=== PATIENT | female | born 1960 | race Caucasian/White ===

== ENCOUNTER 2018-06-16 15:08 | Emergency (ER) | payer SELFPAY ==
[2018-06-16 15:59] VITALS: PULSE 80; TEMP 98.8; BMI 25.4
[2018-06-16] MEDS ORDERED: SODIUM CHLORIDE FOR INHALATION 3 ML VIAL.NEB IH ONE (16:26)
[2018-06-16] MEDS ORDERED: HYDROCHLOROTHIAZIDE 25 MG TABLET (FP) PO ONE (16:33)
--- NOTE | 2018-06-16 16:43 | PDOC ---
History of Present Illness - History of Present Illness Initial Comments: 06/16/18 16:44 This is a 58 year old female with a significant past medical history of GERD, and HTN (Noncompliant with meds), who presents to the emergency department complaining of nasal congestion and cough for 3 days. Patient notes progressively worsening episodes of non-productive coughing. Patient states coughing is worse at night and sometimes makes her nauseous. She states her nose is dry and congested, causing her to breathe out of her mouth. Pt denies CP /SOB but reports soreness in her ribs due to coughing. Patient notes she experienced similar symptoms this summer, and saw her PCP and diagnosed it as bronchitis. Denies fever and chills. Denies leg swelling. Pt notes that she has h/o HTN but has been noncompliant with her meds due to being busy working 2 jobs. Allergies: Codeine Social hx: 2 glasses wine a week. Denies tobacco use. PCP: Dr. Esquivel <Cyril Benz - Last Filed: 06/16/18 17:06> <Wendie Eastman - Last Filed: 06/16/18 17:23> - General Chief Complaint: Respiratory Stated Complaint: BRONCHITIS Time Seen by Provider: 06/16/18 15:09 Past History - Past Medical History Anemia: No Asthma: No Cancer: No Cardiac Disorders: No CVA: No COPD: No CHF: No Dementia: No Diabetes: No GI Disorders: No Disorders: No HTN: No Hypercholesterolemia: No Liver Disease: No Seizures: No Thyroid Disease: No - Surgical History Abdominal Surgery: Yes (Abdominoplasty) Appendectomy: No Cardiac Surgery: No Cholecystectomy: No Lung Surgery: No Neurologic Surgery: No Orthopedic Surgery: No - Immunization History Immunization Up to Date: No - Suicide/Smoking/Psychosocial Hx Smoking Status: No Smoking History: Never smoked Have you smoked in the past 12 months: No Number of Cigarettes Smoked Daily: 0 Cigars Per Day: 0 Hx Alcohol Use: Yes Drug/Substance Use Hx: No Substance Use Type: None Hx Substance Use Treatment: No <Cyril Benz - Last Filed: 06/16/18 17:06> <Wendie Eastman - Last Filed: 06/16/18 17:23> - Past Medical History Allergies/Adverse Reactions: Allergies Allergy/AdvReac Type Severity Reaction Status Date / Time codeine [Codeine] Allergy Nausea Verified 06/16/18 15:55 Home Medications: Ambulatory Orders No Home Medications 0 dose .ROUTE UTDICT 01/10/13 Azithromycin 250 mg PO DAILY #4 tablet 06/16/18 Hydrochlorothiazide [Hctz -] 25 mg PO DAILY #30 tablet 06/16/18 Review of Systems - Review of Systems Comments:: 06/16/18 16:45 "GENERAL/CONSTITUTIONAL: +Chills No fever.. No weakness. HEAD, EYES, EARS, NOSE AND THROAT: +Nasal congestion. No change in vision. No ear pain or discharge. No sore throat. CARDIOVASCULAR: No CP/SOB. No loss of consciousness RESPIRATORY: +cough. No wheezing, or hemoptysis. GASTROINTESTINAL: No vomiting, diarrhea or constipation. GENITOURINARY: No dysuria, frequency, or change in urination. MUSCULOSKELETAL: No joint or muscle swelling or pain. SKIN: No rash NEUROLOGIC: No vertigo, no change in strength/sensation. ENDOCRINE: No increased thirst. No abnormal weight change. HEMATOLOGIC/LYMPHATIC: No anemia, easy bleeding, or history of blood clots. ALLERGIC/IMMUNOLOGIC: No hives or skin allergy. <Ou,Cyril - Last Filed: 06/16/18 17:06> *Physical Exam - Vital Signs Last Vital Signs Temp Pulse Resp BP Pulse Ox 98.8 F 80 15 190/110 H 98 06/16/18 15:08 06/16/18 15:08 06/16/18 15:08 06/16/18 15:08 06/16/18 15:08 - Physical Exam Comments: 06/16/18 16:46 GENERAL: Awake, alert, and fully oriented, in no acute distress. HEAD: No signs of trauma EYES: PERRLA, EOMI, sclera anicteric, conjunctiva clear ENT: Auricles normal inspection, hearing grossly normal, nares patent, oropharynx clear without exudates. Moist mucosa NECK: Nontender, no stepoffs, Normal ROM, supple, no lymphadenopathy, JVD, or masses LUNGS: +Slight rales at the right lung base. No wheezes, and no crackles HEART: Regular rate and rhythm, normal S1 and S2, no murmurs, rubs or gallops ABDOMEN: Soft, nontender, normoactive bowel sounds. No guarding, no rebound. No masses EXTREMITIES: Normal range of motion, no edema. No clubbing or cyanosis. No cords, erythema, or tenderness NEUROLOGICAL: Cranial nerves II through XII intact. 5/5 strength and sensation in all extremities, Normal speech, normal gait, normal cerebellar function SKIN: Warm, Dry, normal turgor, no rashes or lesions noted. <Ou,Cyril - Last Filed: 06/16/18 17:06> - Vital Signs Last Vital Signs Temp Pulse Resp BP Pulse Ox 98.8 F 80 15 160/104 H 98 06/16/18 15:08 06/16/18 15:08 06/16/18 15:08 06/16/18 17:12 06/16/18 15:08 <Wendie Eastman - Last Filed: 06/16/18 17:23> ED Treatment Course - RADIOLOGY Radiology Studies Ordered: Category Date Time Status CHEST PA & LAT [RAD] Stat Radiology 06/16/18 16:17 Ordered <Ou,Cyril - Last Filed: 06/16/18 17:06> - Medications Given in the ED: ED Medications Discontinued Medications Generic Name Dose Route Start Last Admin Trade Name Freq PRN Reason Stop Dose Admin Hydrochlorothiazide 25 mg 06/16/18 16:33 06/16/18 16:50 Hctz - PO 06/16/18 16:34 25 mg ONCE ONE Administration Sodium Chloride 3 ml 06/16/18 16:26 06/16/18 16:53 Normal Saline For Inhalation - IH 06/16/18 16:27 3 ml ONCE ONE Administration <Wendie Eastman - Last Filed: 06/16/18 17:23> Medical Decision Making - Medical Decision Making 06/16/18 16:36 58 F with 3 days of cough and myalgias. Likely viral URI. Will r/o PNA with CXR. Pt also noted to have elevated BP in ED, likely 2/2 med noncompliance. Pt with no s/s end-organ damage. Denies CP/SOB/headache. - CXR - Home dose of HCTZ 06/16/18 16:53 CXR clear on my read. However, given rales on exam, will tx with Z-pack. Pt is well appearing, with normal vitals. Clinically stable for DC at this time. I discussed the physical exam findings, ancillary test results and final diagnoses with the patient. I answered all of the patient's questions. The patient was satisfied with the care received and felt comfortable with the discharge plan and treatment plan. The patient agrees to follow up with the primary care physician within 24-72 hours. <Cyril Benz - Last Filed: 06/16/18 17:06> *DC/Admit/Observation/Transfer - Attestations Physician Attestion: 06/16/18 16:53 I, Dr. Cyril Benz MD, attest that this document has been prepared under my direction and personally reviewed by me in its entirety. I further attest, that it accurately reflects all work, treatment, procedures and medical decision -making performed by me. <Cyril Benz - Last Filed: 06/16/18 17:06> - Attestations Scribe Attestion: 06/16/18 17:23 Documentation prepared by THIERRY Kumar, acting as medical transport specialist for Cyril Benz MD. <Wendie Eastman - Last Filed: 06/16/18 17:23> Diagnosis at time of Disposition: Acute viral syndrome - Discharge Dispostion Disposition: HOME Condition at time of disposition: Good - Prescriptions Prescriptions: Azithromycin 250 mg PO DAILY #4 tablet Hydrochlorothiazide [Hctz -] 25 mg PO DAILY #30 tablet - Referrals Referrals: Serafin Esquivel MD [Primary Care Provider] - - Patient Instructions Printed Discharge Instructions: DI for Acute Bronchitis Additional Instructions: Your cough is likely due to bronchitis. Take the antibiotics as prescribed. Take your blood pressure medication as prescribed. Your blood pressure was elevated today. Uncontrolled blood pressure can eventually lead to kidney disease, heart disease, other serious illness, disability, or even . If you experience chest pain, shortness of breath, or any other concerning symptoms, return to the ER immediately. [place] tos es probable debido a la bronquitis. [place] los antibiticos segn lo prescrito. [place] gonzales medicamento para la presin arterial segn lo prescrito. Tu presin arterial se elev hoy. La presin arterial no controlada puede conducir eventualmente a enfermedad renal, enfermedad cardaca, otra enfermedad grave, discapacidad o incluso la muerte. Si experimenta dolor en el pecho, dificultad para respirar o cualquier otro sntoma relacionado, regrese a la maurice de emergencias inmediatamente. Print Language: GHANAIAN - Post Discharge Activity Forms/Work/School Notes: Back to Work
[2018-06-16] MEDS ORDERED: HYDROCHLOROTHIAZIDE 25 MG TABLET (FP) ONE (16:49)
[2018-06-16] MEDS ORDERED: AZITHROMYCIN 250 MG TABLET PO ONE (17:05)
[2018-06-16 17:12] VITALS: BP 160/104
== END 2018-06-16 17:18 | disposition home or self-care (01) ==
LOC: FER 15:08
PROC: 3E0F7GC Introduction of Other Therapeutic Substance into Respiratory Tract, Via Natural or Artificial Opening (ICD-10-PCS; principal; 2018-06-16)
DX: B34.9 Viral infection, unspecified (principal)
CPT/HCPCS: 71046-TC-FY; 99281-25

== ENCOUNTER 2018-10-24 07:34 | Emergency (ER) | payer OTHER ==
[2018-10-24 07:39] VITALS: BMI 25.4
--- NOTE | 2018-10-24 07:54 | PDOC ---
History of Present Illness - General Chief Complaint: Respiratory Stated Complaint: COUGH,EPIAGSTRIC PAIN,HEADACHE AND FEVER Time Seen by Provider: 10/24/18 07:48 History Source: Patient (Patient walked in complaining of chills, fever, muscle aches, cough. 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 No flu vaccine) Exam Limitations: No Limitations - History of Present Illness Timing/Duration: 24 hours Severity: mild, moderate Associated Symptoms: reports: cough, fever/chills, malaise Past History - Travel Traveled outside of the country in the last 30 days: No Close contact w/someone who was outside of country & ill: No - Past Medical History Allergies/Adverse Reactions: Allergies Allergy/AdvReac Type Severity Reaction Status Date / Time codeine [Codeine] Allergy Nausea Verified 10/24/18 07:35 Home Medications: Ambulatory Orders Hydrochlorothiazide [Hctz -] 25 mg PO DAILY #30 tablet 06/16/18 Oseltamivir Phosphate [Tamiflu -] 75 mg PO BID #10 capsule 10/24/18 Anemia: No Asthma: No Cancer: No Cardiac Disorders: No CVA: No COPD: No CHF: No Dementia: No Diabetes: No GI Disorders: No Disorders: No HTN: Yes Hypercholesterolemia: No Liver Disease: No Seizures: No Thyroid Disease: No - Surgical History Abdominal Surgery: Yes (Abdominoplasty) Appendectomy: No Cardiac Surgery: No Cholecystectomy: No Lung Surgery: No Neurologic Surgery: No Orthopedic Surgery: No - Immunization History Immunization Up to Date: No - Suicide/Smoking/Psychosocial Hx Smoking Status: No Smoking History: Never smoked Have you smoked in the past 12 months: No Number of Cigarettes Smoked Daily: 0 Cigars Per Day: 0 Hx Alcohol Use: Yes (socially) Drug/Substance Use Hx: No Substance Use Type: None Hx Substance Use Treatment: No Review of Systems - Review of Systems Able to Perform ROS?: Yes Is the patient limited Malay proficient: Yes Constitutional: Yes: Symptoms Reported, Fever, Malaise HEENTM: Yes: See HPI Respiratory: Yes: Cough. No: Stridor, Wheezing Cardiac (ROS): No: Symptoms Reported, See HPI, Chest Pain, Edema, Irregular Heart Rate, Lightheadedness, Palpitations, Syncope, Chest Tightness, Other ABD/GI: No: Symptoms Reported, See HPI, Abdominal Distended, Abd. Pain w/ defecation, Blood Streaked Bowels, Constipated, Diarrhea, Difficulty Swallowing , Nausea, Poor Appetite, Poor Fluid Intake, Rectal Bleeding, Vomiting, Indigestion, Abdominal cramping, Tarry Stools, Other : No: Symptoms Reported, See HPI, Burning, Dysuria, Discharge, Frequency, Flank Pain, Hematuria, Incontinence, Pain, Urgency, Testicular Mass, Testicular Swelling, Lesions, Testicular Pain, Other *Physical Exam - Vital Signs Last Vital Signs Temp Pulse Resp BP Pulse Ox 102.3 F H 109 H 18 147/106 H 95 10/24/18 07:35 10/24/18 07:35 10/24/18 07:35 10/24/18 07:35 10/24/18 07:35 - Physical Exam General Appearance: Yes: Nourished, Appropriately Dressed, Mild Distress HEENT: positive: JEFF, Pharyngeal Erythema Neck: positive: Supple, Lymphadenopathy (R) Respiratory/Chest: positive: Lungs Clear, Normal Breath Sounds Cardiovascular: positive: Regular Rhythm, Regular Rate, S1, S2 Medical Decision Making - Medical Decision Making Impression: URI viral versus strep B 10/24/18 08:35 *DC/Admit/Observation/Transfer Diagnosis at time of Disposition: Acute viral syndrome - Discharge Dispostion Disposition: HOME Condition at time of disposition: Stable Decision to Admit order: No - Prescriptions Prescriptions: Oseltamivir Phosphate [Tamiflu -] 75 mg PO BID #10 capsule - Referrals - Patient Instructions Printed Discharge Instructions: DI for Viral Syndrome - Post Discharge Activity Forms/Work/School Notes: Back to Work
[2018-10-24] MEDS ORDERED: ACETAMINOPHEN 325 MG TABLET (FP) ONE (08:27)
[2018-10-24] MEDS ORDERED: ACETAMINOPHEN 325 MG TABLET (FP) PO ONE (08:28)
[2018-10-24 08:53] VITALS: BP 139/92; PULSE 99; TEMP 101.8
== END 2018-10-24 08:53 | disposition home or self-care (01) ==
LOC: FER 07:34
DX: B34.9 Viral infection, unspecified (principal); I10 Essential (primary) hypertension
CPT/HCPCS: 87070; 87880; 99282-25

== ENCOUNTER 2018-11-15 14:34 | Emergency (ER) | payer OTHER ==
[2018-11-15 14:55] VITALS: BP 158/105; PULSE 88; TEMP 98; BMI 26.4
--- NOTE | 2018-11-15 15:06 | PDOC ---
History of Present Illness - General Chief Complaint: Ear Problem Stated Complaint: BOTH EAR PAIN Time Seen by Provider: 11/15/18 15:05 History Source: Patient Exam Limitations: No Limitations Past History - Travel Traveled outside of the country in the last 30 days: No Close contact w/someone who was outside of country & ill: No - Past Medical History Allergies/Adverse Reactions: Allergies Allergy/AdvReac Type Severity Reaction Status Date / Time codeine [Codeine] Allergy Nausea Verified 11/15/18 14:36 Home Medications: Ambulatory Orders Hydrochlorothiazide [Hctz -] 25 mg PO DAILY #30 tablet 06/16/18 Amoxicillin - [Amoxicillin 875mg Tablet -] 875 mg PO BID #14 tab 11/15/18 Cetirizine HCl [Zyrtec -] 10 mg PO DAILY PRN #30 tablet 11/15/18 Fluticasone Prop 0.05% Nasal [Flonase -] 1 - 2 spray NS DAILY PRN #1 spray.pump 11/15/18 Anemia: No Asthma: No Cancer: No Cardiac Disorders: No CVA: No COPD: No CHF: No Dementia: No Diabetes: No GI Disorders: No Disorders: No HTN: Yes Hypercholesterolemia: No Liver Disease: No Seizures: No Thyroid Disease: No - Surgical History Abdominal Surgery: Yes (Abdominoplasty) Appendectomy: No Cardiac Surgery: No Cholecystectomy: No Lung Surgery: No Neurologic Surgery: No Orthopedic Surgery: No - Immunization History Immunization Up to Date: No - Suicide/Smoking/Psychosocial Hx Smoking Status: No Smoking History: Never smoked Have you smoked in the past 12 months: No Number of Cigarettes Smoked Daily: 0 Cigars Per Day: 0 Information on smoking cessation initiated: No Hx Alcohol Use: Yes (2 X WEEK) Drug/Substance Use Hx: No Substance Use Type: None Hx Substance Use Treatment: No Review of Systems - Review of Systems Able to Perform ROS?: Yes Is the patient limited Lebanese proficient: No *Physical Exam - Vital Signs Last Vital Signs Temp Pulse Resp BP Pulse Ox 98 F 88 20 158/105 H 98 11/15/18 14:36 11/15/18 14:36 11/15/18 14:36 11/15/18 14:36 11/15/18 14:36 Medical Decision Making - Medical Decision Making Pt was seen at bedside, also will be seen by attending Dr. D'Ambrosia. Pt presenting with Considering [vs vs] Pt can be discharged to home with follow-up. Pt advised to follow-up with PCP in 1-2 days and has been referred to [referrals]. Strict return precautions provided with pt understanding. 11/15/18 15:27 *DC/Admit/Observation/Transfer Diagnosis at time of Disposition: Nasal congestion Otitis media Qualifiers: Otitis media type: unspecified Chronicity: acute Qualified Code(s): H66.90 - Otitis media, unspecified, unspecified ear - Discharge Dispostion Disposition: HOME Condition at time of disposition: Good Decision to Admit order: No - Referrals Referrals: Serafin Esquivel MD [Staff Physician] - - Patient Instructions Printed Discharge Instructions: Middle Ear Infection Additional Instructions: You were seen in the ER today for nasal congestion and pressure in your ears. We have sent antibiotics and decongestants to your pharmacy. Please take these as prescribed. Please follow-up with your primary care doctor within 1-2 days to discuss your visit and make sure your symptoms have improved. Please return to the ER if you have any worsening pain, development of fevers or chills, loss of consciousness , productive cough or SOB, inability to tolerate food or fluids, or any other concerns. - Post Discharge Activity
--- NOTE | 2018-11-15 15:30 | PDOC ---
Attending Attestation - Resident Resident Name: HaileeEm - ED Attending Attestation I have performed the following: I have examined & evaluated the patient, The case was reviewed & discussed with the resident, I agree w/resident's findings & plan, Exceptions are as noted - HPI HPI: 11/15/18 15:46 Nasal congestion and bilateral ear pain, watery nasal discharge, no sore throat , no cough, no nausea vomiting or diarrhea. No chest pain or shortness of breath - Physicial Exam PE: 11/15/18 15:46 Afebrile, vital signs normal Physical exam entirely normal except for mild nasal congestion and mild erythema of both TMs, without bulging. - Medical Decision Making 11/15/18 15:47 Assessment: URI, eustachian tube dysfunction Plan: Symptomatic treatment and follow-up if no improvement. Fully ambulatory and in no distress at discharge.
== END 2018-11-15 15:59 | disposition home or self-care (01) ==
LOC: FER 14:34
DX: H66.90 Otitis media, unspecified, unspecified ear (principal); R09.81 Nasal congestion; I10 Essential (primary) hypertension
CPT/HCPCS: 99281-25

== ENCOUNTER 2019-01-14 08:21 | Emergency (ER) | payer OTHER | END 2019-01-14 09:00 | disposition home or self-care (01) | LOC: JER 08:21 → JERFT 09:00 ==

== ENCOUNTER 2022-07-15 12:25 | Emergency (ER) | payer OTHER ==
[2022-07-15 12:30] VITALS: BP 156/103; PULSE 76; RESP 16; TEMP 98.4; BMI 25.4
== END 2022-07-15 12:54 | disposition home or self-care (01) ==
LOC: FER 12:25 → MERGE 12:25 → FER 12:54
DX: S61.211A Laceration without foreign body of left index finger without damage to nail, initial encounter (principal); Y99.9 Unspecified external cause status; Z48.02 Encounter for removal of sutures
CPT/HCPCS: 99281-25

== ENCOUNTER 2025-01-14 07:29 | Emergency (ER) | payer MEDICARE ==
[2025-01-14 07:37] VITALS: BP 147/97; PULSE 94; RESP 19; TEMP 99; BMI 25.7
[2025-01-14] MEDS ORDERED: ACETAMINOPHEN 325 MG TABLET (FP) ONE (07:59)
[2025-01-14] MEDS: ALBUTEROL SO4 2.5/IPRATROPIUM 0.5 INH SOL 3 ML VIAL.NEB. NEB SCH (08:26)
[2025-01-14] MEDS: ACETAMINOPHEN 325 MG TABLET (FP) PO ONE (08:28)
[2025-01-14] MEDS ORDERED: methylPREDNISolone NA SUCC 125 MG/2 ML VIAL ONE (08:35)
[2025-01-14 08:38] LABS: ABSOLUTE IMMATURE GRANULOCYTES 0.02 x10^3/uL (0.0-0.031); BASOPHILS # 0.04 x10^3/uL (0.01-0.08); EOSINOPHIL % 1.8 % (0.7-5.8); EOSINOPHILS # 0.11 x10^3/uL (0.04-0.36); HEMATOCRIT 38.4 % (34.1-44.9); MCHC 33.9 g/dl (32.2-35.5); MEAN CELL VOLUME 90.8 fl (79.4-94.8); MEAN PLT VOLUME 9.8 fl (9.4-12.3); MONOCYTE # 0.65 x10^3/uL (0.24-0.86); MONOCYTE % 10.4 % (4.7-12.5); PLATELET COUNT 323 x10^3/uL (182-369); RDW 12.2 % (12.4-16.4)
[2025-01-14] MEDS: methylPREDNISolone NA SUCC 125 MG/2 ML VIAL IVPB ONE (08:49)
[2025-01-14 08:59] LABS: POTASSIUM 4.1 mmol/L (3.5-5.1)
[2025-01-14 09:01] LABS: BLOOD UREA NITROGEN 10.8 mg/dL (7-18); CALCIUM 9.5 mg/dL (8.5-10.1)
[2025-01-14 09:02] LABS: ALBUMIN 3.9 g/dl (3.4-5.0)
[2025-01-14 09:05] LABS: CREATININE 0.6 mg/dL (0.55-1.3)
[2025-01-14 09:07] LABS: BILIRUBIN,TOTAL 0.5 mg/dL (0.2-1)
[2025-01-14 13:12] LABS: HIV INTERPRETATION NEGATIVE (NEGATIVE)
[2025-01-14 13:13] LABS: HCV DIAGNOSTIC IN-HOUSE W/RFLX NON-REACTIVE (NONREACTIVE)
== END 2025-01-14 10:13 | disposition home or self-care (01) ==
LOC: JER 07:29
PROC: 3E033GC Introduction of Other Therapeutic Substance into Peripheral Vein, Percutaneous Approach (ICD-10-PCS; principal; 2025-01-14)
PROC: 3E0F7GC Introduction of Other Therapeutic Substance into Respiratory Tract, Via Natural or Artificial Opening (ICD-10-PCS; 2025-01-14)
DX: R05.9 Cough, unspecified (principal); R07.9 Chest pain, unspecified; R50.9 Fever, unspecified; R51.9 Headache, unspecified; R63.8 Other symptoms and signs concerning food and fluid intake; R06.2 Wheezing; R06.82 Tachypnea, not elsewhere classified
CPT/HCPCS: 0241U-QW; 36415; 71045-TC-FY; 80053; 84484; 85025; 86803; 87389; 93005; 93010; 94640; 96374; 99285-25